=== PATIENT | female | born 1970 | race Caucasian/White ===

== ENCOUNTER 2024-05-25 11:47 | Emergency (ER) | payer MEDICAID ==
[~2024-05-25] VITALS: Ht 160 cm; Wt 72.0 kg
[2024-05-25 12:03] VITALS: O2SAT 99
[2024-05-25 13:18] LABS: BASOPHILS % 0.5 % (0.0-2.0); EOSINOPHILS % 0.8 % (0.0-5.0); HEMOGLOBIN. 14.4 g/dL (12.0-16.0); LYMPHOCYTES % 29.4 % (20.0-50.0); MEAN CORPUSCULAR HEMOGLOBIN 30.8 pg (28.0-32.0); MEAN CORPUSCULAR HGB CONC 33.5 g/dL (31.0-37.0); MEAN CORPUSCULAR VOLUME 91.9 fL (81.0-99.0); MEAN PLATELET VOLUME 10.2 fl (7.4-10.4); MONOCYTES % 4.9 % (2.0-8.0); NEUTROPHILS % 64.4 % (40.0-76.0); PLATELET 218 x1000/uL (130-400); RED BLOOD CELL COUNT 4.68 mill/uL (4.2-5.4); RED CELL DISTRIBUTION WIDTH 13.4 % (11.6-14.6); WHITE BLOOD COUNT 7.8 x1000/uL (4.5-11.0)
[2024-05-25 13:24] LABS: CHLORIDE 100 mEq/L (98-107); POTASSIUM 4.1 mEq/L (3.5-5.1); SODIUM 134 mEq/L (136-145)
[2024-05-25 13:25] LABS: CARBON DIOXIDE 28 mEq/L (21-32)
[2024-05-25 13:26] LABS: CALCIUM 9.3 mg/dL (8.7-10.4)
[2024-05-25 13:30] LABS: CREATININE 0.9 mg/dL (0.6-1.0); GLUCOSE 398 mg/dL (70-105); UREA NITROGEN BLOOD 19 mg/dL (9-23)
[2024-05-25] MEDS ORDERED: METF-414 MT (13:56)
[2024-05-25] MEDS ORDERED: AMLO5TAB4 MT (13:56)
[2024-05-25] MEDS: AMLODIPINE 10MG TABLET PO ONE (14:43)
[2024-05-25] MEDS: INSULIN REGULAR (HUMULIN R) 1000UNITS/10ML VIAL SUBCUT ONE (14:45)
[2024-05-25 15:44] VITALS: BP 175/93; PULSE 81; RESP 18; TEMP 36.83628; O2SAT 100
== END 2024-05-25 14:29 | disposition home or self-care (01) ==
LOC: ER 12:46
DX: I16.0 Hypertensive urgency (principal); E11.65 Type 2 diabetes mellitus with hyperglycemia; Z90.49 Acquired absence of other specified parts of digestive tract; Z90.710 Acquired absence of both cervix and uterus
CPT/HCPCS: 99284; 80048; 82962; 85025; 36415; 93005; 96372; J1815